=== PATIENT | female | born 1985 | race Caucasian/White ===

== ENCOUNTER 2022-04-25 16:42 | Emergency (ER) | payer OTHER ==
[~2022-04-25] VITALS: Ht 170.2 cm; Wt 64.5 kg
[2022-04-25 16:56] VITALS: BP 130/75
--- NOTE | 2022-04-25 16:56 | NUR ---
PATIENT AMBULATED TO BED 5.
--- NOTE | 2022-04-25 17:23 | NUR ---
MD RIVAS AT BEDSIDE FOR EVALUATION
[2022-04-25 17:47] LABS: BASOPHILS # (AUTO) 0.1 K/uL (0.00-0.22); BASOPHILS % (AUTO) 1.1 % (0.0-2.0); EOSINOPHILS % (AUTO) 0.4 % (0.0-4.0); HEMATOCRIT 35.6 % (36-48); HEMOGLOBIN 11.7 g/dL (12.0-16.0); LYMPHOCYTES # (AUTO) 3.3 K/uL (2.5-16.5); LYMPHOCYTES % (AUTO) 48.7 % (20.5-51.1); MEAN CORPUSCULAR HEMOGLOBIN 27 pg (27-31); MEAN CORPUSCULAR HGB CONC 33 g/dL (33-37); MEAN CORPUSCULAR VOLUME 81.5 fL (80-94); MONOCYTES # (AUTO) 0.3 K/uL (0.8-1.0); MONOCYTES % (AUTO) 4.8 % (1.7-9.3); NEUTROPHILS # (AUTO) 3.1 K/uL (1.8-7.7); PLATELET COUNT (AUTO) 242 K/uL (140-450); RED BLOOD CELL COUNT(AUTO) 4.37 MIL/uL (4.20-5.40); RED CELL DISTRIBUTION WIDTH 14.1 % (11.6-13.7); WHITE BLOOD COUNT (AUTO) 6.8 K/uL (4.8-10.8)
--- NOTE | 2022-04-25 17:47 | NUR ---
36YO FEMALE PT C/O CRAMPING 8/10 LOWER ABDOMINAL PAIN X5DAYS. EXPRESSED CONCERN FOR POSSIBLE . REPORTS 2 NEGATIVE AT HOME TESTS AND 1 NEGATIVE AT URGENT CARE YESTERDAY. STATES URGENT CARE ADVICED HER TO "EAT MORE CITRUS AND VEGETABLES". LMP 10. ABDOMEN NON TENDER OR DISTENED, ACTIVE X4. DENIES DYSURIA, N/V/D, CHEST PAIN , FEVER OR CHILLS. PT AAOX4, RESPIRATIONS EVEN AND UNLABORED. HOB POSITIONED PER COMFORT. GHANAIAN SPEAKING HX:DENIES NKA
--- NOTE | 2022-04-25 17:50 | NUR ---
pt refused XRAY due to" possible ". requested to wait after us results. md RIVAS made aware
--- NOTE | 2022-04-25 17:52 | NUR ---
US AT BEDSIDE
[2022-04-25 18:05] LABS: ALBUMIN 3.2 g/dL (3.4-5.0); ANION GAP 12.8 (8-16); CARBON DIOXIDE 24.4 mmol/L (21-32); CREATININE 0.8 mg/dL (0.6-1.3); POTASSIUM 4.2 mmol/L (3.5-5.1); TOTAL BILIRUBIN 0.2 mg/dL (0.0-1.0)
--- NOTE | 2022-04-25 19:08 | NUR ---
XRAY AT BEDSIDE
--- NOTE | 2022-04-25 19:16 | NUR ---
REPORT GIVEN TO KIRBY PAUL. TRANSFER OF CARE AT THIS TIME
--- NOTE | 2022-04-25 19:42 | NUR ---
HANDOFF GIVEN TO HUMBERTO ROBBINS. TX OF CARE.
[2022-04-25] MEDS ORDERED: MIRABULK PO (19:59)
[2022-04-25 20:11] VITALS: BP 124/95
== END 2022-04-25 20:11 | disposition home or self-care (01) ==
LOC: MED 16:42
DX: N83.202 Unspecified ovarian cyst, left side (principal); K59.00 Constipation, unspecified; Z79.899 Other long term (current) drug therapy
CPT/HCPCS: 36415; 74018; 76830; 80053; 81002; 81025; 85025; 99285; Q0092